=== PATIENT | male | born 1965 | race American Indian/Alaskan Native ===

== ENCOUNTER 2017-07-07 05:40 | Emergency (ER) | payer OTHER ==
--- NOTE | 2017-07-07 06:37 | XRay Report ---
FINAL REPORT PROCEDURE: XR CHEST ROUTINE 2V TECHNIQUE: PA and lateral chest radiographs were obtained. CPT 82164 HISTORY: cough COMPARISON: No prior studies are available for comparison. FINDINGS: Heart: Normal. Mediastinum/Vessels: Normal. Lungs/Pleural space: Normal. Bony thorax: No acute osseous abnormality. Other: IMPRESSION: Is no evidence of an acute dot of pulmonary process..
[2017-07-07] MEDS ORDERED: TYLENOL/CODEINE PO ONE (07:56)
[2017-07-07] MEDS ORDERED: MUCINEX ER PO ONE (07:56)
--- NOTE | 2017-07-07 08:12 | Emergency Department Report ---
Minor Respiratory - HPI Chief Complaint: Upper Respiratory Infection Stated Complaint: COLD SX Time Seen by Provider: 07/07/17 07:17 Duration: 3 Days Pain Location: Throat, Nose Severity: moderate Minor Respiratory: Yes Able to Tolerate Fluids, Yes Cough, No Rhinorrhea, No Sore Throat, No Ear Pain, No Sick Contacts, No Hemoptysis, No Chest Pain, No Shortness of Breath, No Fever Other History: Patient is a 51-year-old male who presents to the clinic complaining of sore throat 4 days. he admits to nonproductive cough, nasal drainage, congestion. Pt states relieving factor as resting, sleeping but no relief with otc meds. he denies fever/ headache/chills/nausea/vomiting/ abdominal pain/shortness of breath/ear pain bilaterally. ED Review of Systems ROS: Stated complaint: COLD SX Other details as noted in HPI Constitutional: denies: chills, fever Eyes: denies: eye pain, eye discharge, vision change ENT: congestion. denies: ear pain, throat pain, dental pain, hearing loss Respiratory: cough. denies: shortness of breath, wheezing Cardiovascular: denies: chest pain, palpitations Endocrine: no symptoms reported Gastrointestinal: denies: abdominal pain, nausea, diarrhea Genitourinary: denies: urgency, dysuria Musculoskeletal: denies: back pain, joint swelling, arthralgia Skin: denies: rash, lesions Neurological: denies: headache, weakness, paresthesias Psychiatric: denies: anxiety, depression Hematological/Lymphatic: denies: easy bleeding, easy bruising ED Past Medical Hx - Past Medical History Previous Medical History?: No Additional medical history: SLEEP APNEA WITH CPAP MACHINE. MORBID OBESITY - Social History Smoking Status: Never Smoker Substance Use Type: None - Medications Home Medications: Home Medications Medication Instructions Recorded Confirmed Last Taken Type Acetamin/Codeine 120-12Mg/5 ml 5 ml PO TID #60 ml 07/07/17 Unknown Rx [Tylenol/Codeine 120-12 mg/5 ml] D-Methorphan/PE/Acetaminophen 1 each PO Q6H #30 tablet 07/07/17 Unknown Rx [Tylenol Cold Multi-Symp Caplet] Ibuprofen [Motrin] 800 mg PO Q8HR PRN #15 tablet 07/07/17 Unknown Rx Lisinopril [Zestril] 20 mg PO QDAY 07/07/17 07/07/17 1 Day Ago History ~07/06/17 guaiFENesin ER [Mucinex ER] 600 mg PO BID #20 tablet 07/07/17 Unknown Rx Minor Respiratory Exam - Exam General: Vital signs noted. No distress. Alert and acting appropriately. HEENT: Yes Moist Mucous Membranes, Yes Frontal Tenderness, No Pharyngeal Erythema, No Pharyngeal Exudates, No Rhinorrhea, No Conjuctival Injection, No Maxillary Tenderness Ear: Neither TM Bulge, Neither TM Erythema, Neither EAC Pain, Neither EAC Discharge Neck: Yes Supple, No Adenopathy Lungs: Yes Good Air Exchange, No Wheezes, No Ronchi, No Stridor, No Cough, No Labored Respirations, No Retractions, No Use of Accessory Muscles, No Other Abnormal Lung Sounds Heart: Yes Regular, No Murmur Abdomen: Yes Normal Bowel Sounds, No Tenderness, No Peritoneal Signs Skin: No Rash, No Edema Neurologic: Alert and oriented, no deficits. Musculoskeletal: Unremarkable. ED Course Vital Signs 07/07/17 06:03 Temperature 98.1 F Pulse Rate 79 Respiratory 17 Rate Blood Pressure 153/79 O2 Sat by Pulse 98 Oximetry ED Medical Decision Making - Radiology Data Radiology results: report reviewed No acute cardiopulmonary or pulmonary infection, no signs of pneumonia Normal chest x-ray. - Medical Decision Making 51-year-old male presents with upper respiratory infection. ED course: Patient received Tylenol with Codeine to help with cough and Mucinex in the ED. I discussed with patient with viral syndromes last 7-14 days and will resolve on its own. I discussed with patient symptomatic relief, proper rest, vitamin C to boost immunity. I discussed the patient to avoid sick contacts, drink plenty of fluids. I discussed the patient to follow up with PCP as scheduled. I discussed with the patient is symptoms worsens or new symptoms arise to return to ED immediately. Vital signs are normal patient is in no acute or respiratory distress. Critical care attestation.: If time is entered above; I have spent that time in minutes in the direct care of this critically ill patient, excluding procedure time. ED Disposition Clinical Impression: Viral syndrome URI (upper respiratory infection) Qualifiers: URI type: unspecified URI Qualified Code(s): J06.9 - Acute upper respiratory infection, unspecified Disposition: - TO HOME OR SELFCARE Is pt being admited?: No Does the pt Need Aspirin: No Condition: Stable Instructions: Viral Syndrome (ED), Upper Respiratory Infection (ED) Additional Instructions: Make sure to follow up with the primary care physician as discussed. Take all your medications as you've been prescribed. If you have any worsening symptoms or develop new symptoms please return to ED immediately. Prescriptions: Acetamin/Codeine 120-12Mg/5 ml [Tylenol/Codeine 120-12 mg/5 ml] 5 ml PO TID #60 ml D-Methorphan/PE/Acetaminophen [Tylenol Cold Multi-Symp Caplet] 1 each PO Q6H # 30 tablet guaiFENesin ER [Mucinex ER] 600 mg PO BID #20 tablet Ibuprofen [Motrin] 800 mg PO Q8HR PRN #15 tablet PRN Reason: Pain Referrals: CRISTHIAN HEREDIA MD [Primary Care Provider] - 3-5 Days [facility] [Outside] - 3-5 Days [facility] [Outside] - 3-5 Days [facility] [Outside] - 3-5 Days Forms: Accompanied Note, Work/School Release Form(ED) Time of Disposition: 08:32
[2017-07-07 08:56] VITALS: BP 148/80
== END 2017-07-07 08:45 | disposition home or self-care (01) ==
LOC: ED 05:40
DX: J06.9 Acute upper respiratory infection, unspecified (principal); B34.9 Viral infection, unspecified
CPT/HCPCS: 71046; 99283